=== PATIENT | female | born 1985 | race Caucasian/White ===

== ENCOUNTER → 2018-04-03 | Day surgery (SDC) | payer OTHER ==
[~2018-04-03] VITALS: Ht 165.1 cm; Wt 63.5 kg
[~2018-04-03] MED LIST: PRENATAL PLUS1 EAC2
== END | disposition home or self-care (01) ==
LOC: ER 12:25 → CIR.AMB 14:43
DX: O03.4 Incomplete spontaneous abortion without complication (principal)